=== PATIENT | male | born 1940 | race Hispanic/Latino ===

== ENCOUNTER 2017-11-10 20:05 | Emergency (ER) | payer MEDICARE, MEDICAID ==
--- NOTE | 2017-11-10 21:00 | ED PDOC ---
HPI: Altered Mental Status Time Seen by Provider: 11/10/17 20:39 Chief Complaint (Nursing): Weakness/Neurological Deficit History Per: Patient, Family Onset/Duration Of Symptoms: Hrs Usual Baseline: Alert Confused Additional Complaint(s): Hx of Parkinson's Disease (on no medications) presenting with episode of over- exertion and prolonged bathroom usage. Per patient and , [place] to [facility] [address] which is an unusually long amount of blocks (14 blocks) for him to walk, the states he never walks that much because of shuffling gait. The patient states that nothing significant happened today and that after his walk he went to the bathroom to urinate and was sitting there when the police came to check on him. states that according to the police , they were called because he was sitting on the toilet for an extended period of time, but the states that it is normal for him to take along time in the bathroom, states that today he was in the bathroom at the diner for nearly 45 minutes. Patient states he remembers everything, did not pass out, and that he was just sitting there. States he had no chest pain, shortness of breath, headache during his walk, but currently feels tired because he walked so much, he states. Past Medical History Reviewed: Historical Data, Nursing Documentation, Vital Signs Vital Signs: Last Vital Signs Temp 98.6 F 11/10/17 20:09 Pulse 112 H 11/10/17 20:09 Resp 20 11/10/17 20:09 BP 148/98 H 11/10/17 20:09 Pulse Ox 98 11/10/17 20:09 - Medical History PMH: Parkinson's Disease (early stage) - Family History Family History: States: Unknown Family Hx - Home Medications Home Medications: Ambulatory Orders Medication Instructions Recorded No Known Home Med 11/10/17 - Allergies Allergies/Adverse Reactions: Allergies Allergy/AdvReac Type Severity Reaction Status Date / Time No Known Allergies Allergy Verified 11/10/17 20:12 Review of Systems ROS Statement: Except As Marked, All Systems Reviewed And Found Negative Physical Exam - Reviewed Nursing Documentation Reviewed: Yes Vital Signs Reviewed: Yes - Physical Exam Appears: Positive for: Well, Non-toxic, No Acute Distress Head Exam: Positive for: ATRAUMATIC, NORMAL INSPECTION, NORMOCEPHALIC Skin: Positive for: Normal Color, Warm, DRY Eye Exam: Positive for: EOMI, Normal appearance, PERRL ENT: Positive for: Normal ENT Inspection Neck: Positive for: Normal, Painless ROM Cardiovascular/Chest: Positive for: Regular Rate, Rhythm Respiratory: Positive for: CNT, Normal Breath Sounds Gastrointestinal/Abdominal: Positive for: Normal Exam, Soft Back: Positive for: Normal Inspection Extremity: Positive for: Normal ROM Neurologic/Psych: Positive for: Alert, laborer general II-XII, Oriented (x 2, baseline), Mood/Affect (normal). Negative for: Motor/Sensory Deficits, Facial Droop - Laboratory Results Result Diagrams: 11/10/17 21:05 11/10/17 21:05 - ECG ECG Rhythm: Positive for: Normal QRS, Normal ST Segment, Sinus Rhythm O2 Sat by Pulse Oximetry: 98 Pulse Ox Interpretation: Normal Medical Decision Making Medical Decision MakinPM A/P: Hx of Parkinsons presenting with tiredness after excessive walking and prolonged stay in bathroom -patients history sounds like an ongoing, chronic issue -patient was initially tachycardic, now resolving spontaneously -well appearing otherwise -will check basic screening labs, head CT, cxr for acute pathology -will re-eval 1210AM -Patient states he's feeling fine, just "tired" -Patient well appearing, vitals improved, patient able to walk without difficulty (shuffling gait which is chronic as per ) -Will discharge home, advised to f/u w/ PMD in [facility] Disposition - Clinical Impression Clinical Impression: Parkinsons - Disposition Referrals: Cecy Sun [Outside] Disposition: Routine/Home Disposition Time: 00:09 Condition: STABLE Instructions: Parkinson Disease Forms: [employer] (Syriac)
[2017-11-10 21:11] LABS: HEMOGLOBIN 15.6 g/dL (12.0-18.0); MEAN CELL VOLUME 85.9 fl (80.0-94.0); MEAN CORPUSCULAR HEMOGLOBIN 28.4 pg (27.0-31.0); MEAN CORPUSCULAR HGB CONC 33.1 g/dL (33.0-37.0); RBC 5.47 Mil/uL (4.40-5.90); RED CELL DISTRIBUTION WIDTH 13.6 % (11.5-14.5); WHITE BLOOD COUNT 9.9 K/uL (4.8-10.8)
[2017-11-10 21:20] LABS: BLOOD UREA NITROGEN 26 mg/dl (9-20); CALCIUM 9.5 mg/dL (8.4-10.2); GFR AFRICAN-AMERICAN > 60; GFR NON-AFRICAN AMERICAN 59
[2017-11-10 21:32] LABS: B-TYPE NATRIURETIC PEPTIDE 83.7 pg/ml (0-900)
--- NOTE | 2017-11-10 21:36 | CT ---
EXAM: CT Head Without Intravenous Contrast CLINICAL HISTORY: 76 years old, male; Signs and symptoms; Altered mental status/memory loss; Confusion or disorientation; Additional info: HX of parkinsons, confusion TECHNIQUE: Axial computed tomography images of the head/brain without intravenous contrast. All CT scans at this facility use one or more dose reduction techniques, viz.: automated exposure control; ma/kV adjustment per patient size (including targeted exams where dose is matched to indication; i.e. head); or iterative reconstruction technique. Coronal and sagittal reformatted images were created and reviewed. COMPARISON: No relevant prior studies available. FINDINGS: Brain: Moderate atrophy. No intracranial hemorrhage. No mass. Few scattered foci of decreased attenuation within periventricular/subcortical white matter. No definite edema. Ventricles: No hydrocephalus. Bones/joints: No acute fracture. Soft tissues: Small lipoma right frontal scalp. Sinuses: Scattered minimal mucosal thickening. Small LEFT maxillary retention cyst. Mastoid air cells: No mastoid effusion. Orbits: Unremarkable as visualized. IMPRESSION: 1. Nonspecific white matter changes. Acute infarction may be CT occult within first 24 hours. If a focal deficit persists, consider followup CT or MRI for further evaluation. 2. Incidental/non-acute findings are described above.
[2017-11-11 00:19] VITALS: BP 138/88; PULSE 97; RESP 15; TEMP 98.3; O2SAT 100
--- NOTE | 2017-11-11 09:16 | RAD ---
HISTORY: parkinsons, confusion COMPARISON: No prior. FINDINGS: LUNGS: No active pulmonary disease. PLEURA: No significant pleural effusion identified, no pneumothorax apparent. CARDIOVASCULAR: Cardiomediastinal silhouette appears prominent; however, this cannot be accurately assessed on an AP projection Normal. OSSEOUS STRUCTURES: Degenerative changes. VISUALIZED UPPER ABDOMEN: Normal. OTHER FINDINGS: None. IMPRESSION: No active disease.
--- NOTE | 2017-11-11 12:16 | CARD ---
APPROVED REPORT EKG Measurement Heart [id number] NM [id number] <Conclusion> Sinus rhythm with 1st degree AV block Otherwise normal ECG
== END 2017-11-11 00:17 | disposition home or self-care (01) ==
LOC: H.ER 20:05
DX: G20 Parkinson's disease (principal)

== ENCOUNTER 2017-12-22 19:49 | Emergency (ER) | payer MEDICARE, MEDICAID ==
[2017-12-22 20:24] VITALS: RESP 18; O2SAT 97
--- NOTE | 2017-12-22 21:53 | ED PDOC ---
Lower Extremity Pain/Injury Time Seen by Provider: 12/22/17 21:33 Chief Complaint (Nursing): Lower Extremity Problem/Injury History Per: Patient, Family History/Exam Limitations: no limitations Onset/Duration Of Symptoms: Days Current Symptoms Are (Timing): Still Present Additional Complaint(s): Hx of Parkinsons presenting with atraumatic LLE pain, states that when he walks he has leg pain but is alleviated by rest. Denies trauma. Denies recent travel /plane ride/immobilization. Denies recent excessive walking or overuse. states that the pain is localized and reproducible and thinks there's some swelling. Denies chest pain, shortness of breath, or other symptoms. Patient states "there's a bullet in my leg" but the states that he gets confused because of the Parkinson's and thinks he's trying to express that it feels like there's a bullet in the leg. PMD: Dr. Uriel Horn Past Medical History Reviewed: Historical Data, Nursing Documentation, Vital Signs Vital Signs: Last Vital Signs Temp 97.9 F 12/22/17 20:24 Pulse 85 12/22/17 20:24 Resp 18 12/22/17 20:24 BP 166/88 H 12/22/17 20:24 Pulse Ox 97 12/22/17 20:24 - Medical History PMH: Parkinson's Disease (early stage) - Family History Family History: States: Unknown Family Hx - Home Medications Home Medications: Ambulatory Orders Medication Instructions Recorded No Known Home Med 11/10/17 - Allergies Allergies/Adverse Reactions: Allergies Allergy/AdvReac Type Severity Reaction Status Date / Time No Known Allergies Allergy Verified 12/22/17 20:23 Review of Systems Musculoskeletal: Positive for: Leg Pain Physical Exam - Reviewed Nursing Documentation Reviewed: Yes Vital Signs Reviewed: Yes - Physical Exam Appears: Positive for: Well (Parkinsonian facies), Non-toxic, No Acute Distress Head Exam: Positive for: ATRAUMATIC, NORMAL INSPECTION, NORMOCEPHALIC Skin: Positive for: Normal Color, Warm, DRY Eye Exam: Positive for: EOMI, Normal appearance, PERRL ENT: Positive for: Normal ENT Inspection Neck: Positive for: Normal, Painless ROM Cardiovascular/Chest: Positive for: Regular Rate, Rhythm Respiratory: Positive for: CNT, Normal Breath Sounds Gastrointestinal/Abdominal: Positive for: Normal Exam, Soft Back: Positive for: Normal Inspection Extremity: Positive for: Normal ROM, Tenderness (L lateral calf, no swelling, negative Taco's sign, good distal pulses, warm and well perfused ) Neurologic/Psych: Positive for: Alert, mill manager II-XII, Oriented, Gait (Shuffled). Negative for: Motor/Sensory Deficits - ECG O2 Sat by Pulse Oximetry: 97 Pulse Ox Interpretation: Normal Medical Decision Making Medical Decision MakinPM A/P: Hx of Parkinson's presenting with atraumatic leg pain -leg appears normal in size, patient well appearing -will r/o DVT with ultrasound, will r/o bony abnormality with xray 0000 EXAM: US Duplex Left Lower Extremity Veins CLINICAL HISTORY: 77 years old, male; Pain; Leg, lower; Left; Additional info: R/O dvt TECHNIQUE: Real-time duplex ultrasound scan of the left lower extremity veins integrating B -mode twodimensional vascular structure, Doppler spectral analysis, color flow Doppler imaging and compression. COMPARISON: No relevant prior studies available. FINDINGS: Deep veins: Normal color and spectral Doppler flow. Normal compressibility. No deep vein thrombosis. Superficial veins: No thrombosis. Soft tissues: No popliteal cyst. IMPRESSION: No evidence of DVT within left lower extremity. Patient informed of results, advised to followup with Dr. Horn as outpatient. Stable, well appaering, ambulatory upon discharge. Disposition - Clinical Impression Clinical Impression: Leg pain - Patient ED Disposition Is Patient to be Admitted: No - Disposition Referrals: Uriel Horn MD [Family Provider] - Disposition: Routine/Home Disposition Time: 00:32 Condition: STABLE Instructions: Muscle and Bone Pain (DC) Forms: [employer] (Slovak)
[2017-12-23 00:57] VITALS: BP 142/91; PULSE 84; TEMP 97.6
--- NOTE | 2017-12-23 11:53 | RAD ---
PROCEDURE: Radiographs of the left tibia and fibula. HISTORY: atraumatic left leg pain COMPARISON: None available. TECHNIQUE: Frontal and lateral views obtained. FINDINGS: BONES: No fracture or destructive lesion. JOINT SPACES: Unremarkable. OTHER FINDINGS: None. IMPRESSION: Unremarkable radiographs of the left tibia and fibula.
--- NOTE | 2017-12-23 17:36 | US ---
PROCEDURE: Left Lower Extremity Venous Duplex Exam. HISTORY: r/o dvt PRIORS: None. TECHNIQUE: Left common femoral, femoral, popliteal and posterior tibial, peroneal and great saphenous veins were evaluated. Flow was assessed with color Doppler, compressibility, assessment of phasic flow and augmentation response. FINDINGS: LEFT: 1. Common Femoral Vein: 1.1. Compressibility - Fully compressible: Thrombus - None : Flow - Phasic: Augmentation -Normal: Reflux - None. 2. Superficial Femoral Vein: 2.1. Compressibility - Fully compressible: Thrombus - None: Flow - Phasic: Augmentation -Normal: Reflux - None. 3. Popliteal Vein: 3.1. Compressibility - Fully compressible: Thrombus - None: Flow - Phasic: Augmentation -Normal: Reflux - None. 4. Posterior Tibial Vein: 4.1. Compressibility - Fully compressible: Thrombus - None: Flow - Phasic: Augmentation -Normal: Reflux - None. OTHER FINDINGS: IMPRESSION: No evidence of deep vein thrombosis of the left lower extremity. Concordant preliminary report from [facility], 12/23/2017.
== END 2017-12-23 00:45 | disposition home or self-care (01) ==
LOC: H.ER 19:49
DX: M79.605 Pain in left leg (principal); G20 Parkinson's disease

== ENCOUNTER 2018-03-02 08:28 | Emergency (ER) | payer MEDICARE, MEDICAID ==
[2018-03-02 08:33] VITALS: BMI 39.5
[2018-03-02 08:34] VITALS: RESP 18
[2018-03-02 09:25] LABS: BASO # 0.1 K/uL (0.0-0.2); BASO % 0.5 % (0.0-2.0); EOS # 0.1 K/uL (0.0-0.7); EOS % 0.6 % (0.0-4.0); HEMOGLOBIN 16.1 g/dL (12.0-18.0); LYMPH # 1.1 K/uL (1.0-4.3); LYMPH % 10.6 % (20.0-40.0); MEAN CELL VOLUME 85.4 fl (80.0-94.0); MEAN CORPUSCULAR HEMOGLOBIN 28.6 pg (27.0-31.0); MEAN CORPUSCULAR HGB CONC 33.5 g/dL (33.0-37.0); MEAN PLATELET VOLUME 10.1 fl (7.2-11.7); MONO # 0.6 K/uL (0.0-0.8); MONO % 5.7 % (0.0-10.0); NEUT # 8.6 K/uL (1.8-7.0); NEUT % 82.6 % (50.0-75.0); NRBC % 0.1 % (0.0-0.0); RBC 5.62 Mil/uL (4.40-5.90); RED CELL DISTRIBUTION WIDTH 13.9 % (11.5-14.5); WHITE BLOOD COUNT 10.5 K/uL (4.8-10.8)
--- NOTE | 2018-03-02 10:18 | RAD ---
PROCEDURE: Left Hip X-ray Radiographs. HISTORY: fall out of bed COMPARISON: None. FINDINGS: BONES: No gross fracture appreciated. JOINTS: Bilateral hip joint-space narrowing most notable each superolateral aspect. Inferomedial and superolateral acetabular spurring-bilateral Bilateral L4-5 facet hypertrophic arthrosis Sclerotic pubic symphyseal arthrosis. SOFT TISSUES: Normal. OTHER FINDINGS: Stool retention IMPRESSION: No gross fracture appreciated. If clinical symptoms warrant consider more sensitive evaluation with MRI or CT. Background bilateral hip joint arthrosis. Bilateral facet arthrosis. Stool retention
--- NOTE | 2018-03-02 10:38 | ED PDOC ---
HPI: Trauma/Fall - HPI Time Seen by Provider: 03/02/18 08:56 Chief Complaint (Nursing): Trauma Chief Complaint (Provider): Fall History Per: Patient History/Exam Limitations: no limitations Onset/Duration Of Symptoms: Days (last night) Additional Complaint(s): Carlos Trujillo is a 77 year old male, with a past medical history of Parkinson's disease, who was brought to the emergency department by EMS after patient fell out of his bed onset around 02:00. Patient reports he just fell from bed and is now complaining of left sided body pain. Patient has been eating normally and denies any shortness of breath or other injuries. No further medical complaints. PMD: Uriel Horn I Past Medical History Reviewed: Historical Data, Nursing Documentation, Vital Signs Vital Signs: Last Vital Signs Temp 98.5 F 03/02/18 08:45 Pulse 95 H 03/02/18 08:45 Resp 18 03/02/18 08:45 BP 143/90 03/02/18 08:45 Pulse Ox 96 03/02/18 11:05 - Medical History PMH: Parkinson's Disease (early stage) - Surgical History Surgical History: No Surg Hx - Family History Family History: States: Unknown Family Hx - Social History Current smoker - smoking cessation education provided: No Alcohol: None Drugs: Denies - Home Medications Home Medications: Ambulatory Orders Medication Instructions Recorded No Known Home Med 11/10/17 - Allergies Allergies/Adverse Reactions: Allergies Allergy/AdvReac Type Severity Reaction Status Date / Time No Known Allergies Allergy Verified 12/22/17 20:23 Review of Systems ROS Statement: Except As Marked, All Systems Reviewed And Found Negative Respiratory: Negative for: Shortness of Breath Musculoskeletal: Positive for: Other (left sided body pain) Physical Exam - Reviewed Nursing Documentation Reviewed: Yes Vital Signs Reviewed: Yes - Physical Exam Appears: Positive for: No Acute Distress Head Exam: Positive for: ATRAUMATIC, NORMAL INSPECTION, NORMOCEPHALIC Skin: Positive for: Normal Color, Warm, Dry Eye Exam: Positive for: Normal appearance, EOMI, PERRL Neck: Positive for: Painless ROM Cardiovascular/Chest: Positive for: Regular Rate, Rhythm. Negative for: Murmur , Other (deformity on chest or bruising) Respiratory: Positive for: Normal Breath Sounds. Negative for: Respiratory Distress Gastrointestinal/Abdominal: Positive for: Normal Exam, Soft. Negative for: Tenderness Back: Positive for: Normal Inspection Extremity: Positive for: Normal ROM (left hip and knees normal ROM), Tenderness (mild tenderness on palpation of left hip ), Other (Equal strength bilaterally. No discrepancy on left leg or shortening). Negative for: Deformity, Swelling Neurologic/Psych: Positive for: Alert, Oriented. Negative for: Motor/Sensory Deficits - Laboratory Results Result Diagrams: 03/02/18 09:00 03/02/18 10:00 - ECG O2 Sat by Pulse Oximetry: 96 (RA) Pulse Ox Interpretation: Normal Medical Decision Making Medical Decision Making: Time: 08:56 Initial Impression: fall injury Initial Plan: --BMP --CMP --Urine dipstick --CBC w/ differential --Hip 1 view w/ Pelvis LT [RAD] --Reevaluation 10:15 Hip X-Ray FINDINGS: BONES: No gross fracture appreciated. JOINTS: Bilateral hip joint-space narrowing most notable each superolateral aspect. Inferomedial and superolateral acetabular spurring-bilateral Bilateral L4-5 facet hypertrophic arthrosis Sclerotic pubic symphyseal arthrosis. SOFT TISSUES: Normal. OTHER FINDINGS: Stool retention IMPRESSION: No gross fracture appreciated. If clinical symptoms warrant consider more sensitive evaluation with MRI or CT. Background bilateral hip joint arthrosis. Bilateral facet arthrosis. Stool retention ----- Scribe Attestation: Documented by Refugio Cristobal, acting as a scribe for Sheridan Velazquez MD. Provider Scribe Attestation: All medical record entries made by the Scribe were at my direction and personally dictated by me. I have reviewed the chart and agree that the record accurately reflects my personal performance of the history, physical exam, medical decision making, and the department course for this patient. I have also personally directed, reviewed, and agree with the discharge instructions and disposition. Disposition - Clinical Impression Clinical Impression: Fall from bed - Patient ED Disposition Is Patient to be Admitted: No Doctor Will See Patient In The: Office Counseled Patient/Family Regarding: Diagnosis - Disposition Referrals: Uriel Horn MD [Staff Provider] - [facility] Sun [Outside] Disposition: Routine/Home Disposition Time: 12:39 Condition: STABLE Instructions: Preventing Falls in the Older Adult Forms: [employer] (Spanish) - POA Present On Arrival: Falls Or Trauma
[2018-03-02 10:51] LABS: BLOOD UREA NITROGEN 27 mg/dl (9-20); CALCIUM 9.5 mg/dL (8.4-10.2); GFR NON-AFRICAN AMERICAN > 60
[2018-03-02 13:56] VITALS: BP 132/74; PULSE 74; TEMP 98.3; O2SAT 98
== END 2018-03-02 14:03 | disposition home or self-care (01) ==
LOC: H.ER 08:28
DX: G20 Parkinson's disease (principal); Z71.1 Person with feared health complaint in whom no diagnosis is made; W06.XXXA Fall from bed, initial encounter